=== PATIENT | male | born 1950 | race Caucasian/White ===

== ENCOUNTER 2020-06-19 12:39 | Emergency (ER) | payer MEDICARE ==
[~2020-06-19] VITALS: Ht 175.3 cm; Wt 84.0 kg
[2020-06-19] MEDS ORDERED: IV NORMAL SALINE 1000ML BAG 1,000 ML IV ONE ×2 (13:00→13:30)
--- NOTE | 2020-06-19 13:00 | PHYS DOC ---
Past Medical History Past Medical History: Hypertension Past Surgical History: Hip Replacement Smoking Status: Never Smoker Alcohol Use: Heavy Drug Use: None General Adult EDM: Chief Complaint: HEAT EXPOSURE HPI: HPI: 70-year-old male presents emergency department today after having a heat exposure injury. He was mowing the lawn when he was feeling lightheaded. He then went to go cool off in the garage when he passed out. He woke up he is unsure how long he was out for. He flagged down a dedicated intermodal truck driver who assisted with some water in a cool rag and called the paramedics form. Currently he is feeling better after coming in by paramedics and he denies any pain at this time. He reports drinking water while he was mowing his lawn. His only medical condition is high blood pressure. Review of systems negative for chest pain abdominal pain vomiting headache. Negative for headache or nuchal rigidity. All other review of systems negative. ED course: 70-year-old male presenting after having a syncopal episode during heat exhaustion exposure injury. EKG obtained reviewed by myself shows sinus rhythm with a regular rate. ST segments are congruent. Not suggestive of ACS. CBC unremarkable. Chemistry panel shows a creatinine of 1.5. Troponin within normal limits. CK within normal lungs. Bilirubin minimally elevated. The patient was given 2 L in the emergency department and felt remarkably better. We are waiting on a urine when he was unable to provide a urine he wanted to sign out AMA. We were willing to provide more IV fluids and wait for him to be able to provide urine however the patient is not underweight. He understands the risk of disability and pain and suffering. He is not having urinary tract infection symptoms. He then signed out AMA. Heart Score: Risk Factors: Risk Factors: DM, Current or recent (<one month) smoker, HTN, HLP, family history of CAD, obesity. Risk Scores: Score 0 - 3: 2.5% MACE over next 6 weeks - Discharge Home Score 4 - 6: 20.3% MACE over next 6 weeks - Admit for Clinical Observation Score 7 - 10: 72.7% MACE over next 6 weeks - Early Invasive Strategies Allergies: Allergies: Allergies Coded Allergies Type Severity Reaction Last Updated Verified No Known Drug Allergies 06/19/20 No Physical Exam: PE: Constitutional: Well developed, well nourished, no acute distress, non-toxic appearance. HENT: Normocephalic, atraumatic, bilateral external ears normal, oropharynx moist, no oral exudates, nose normal. [] Eyes: PERRLA, EOMI, conjunctiva normal, no discharge. Neck: Normal range of motion, no tenderness, supple, no stridor. [] Cardiovascular:Heart rate regular rhythm, no murmur Lungs & Thorax: Bilateral breath sounds clear to auscultation [] Abdomen: Bowel sounds normal, soft, no tenderness, no masses, no pulsatile masses. Skin: Warm, dry, no erythema, no rash. [] Back: No tenderness, no CVA tenderness. Extremities: No tenderness, no cyanosis, no clubbing, ROM intact, no edema. [] Neurologic: Mental status: Awake oriented and alert x3 Cranial nerves: Extraocular movements intact, eyebrows evangelina bilaterally, smile s ymmetric, uvula elevation nl, shoulder shrug intact bilaterally, tongue protrusion normal DTRs: 2+ Sensation: equal and normal in all extremities Strength: 5/5 in upper and lower extremities bilaterally Psychologic: Affect normal, judgement normal, mood normal. [] EKG: EKG: [] Radiology/Procedures: Radiology/Procedures: [] Course & Med Decision Making: Course & Med Decision Making Pertinent Labs and Imaging studies reviewed. (See chart for details) [] Dragon Disclaimer: Dragon Disclaimer: This electronic medical record was generated, in whole or in part, using a voice recognition dictation system. Departure Departure Impression: Primary Impression: Heat exhaustion Additional Impression: Syncope Disposition: 07 AGAINST MEDICAL ADVICE Condition: GUARDED Patient Instructions: Heat Illness-SportsMed Additional Instructions: Follow-up with your primary physician in 1 to 2 days. Return to the emergency department if you have any new or concerning findings. Justicifation of Admission Dx: Justifications for Admission: Justification of Admission Dx: N/A GALINA FENTON MD Jun 19, 2020 13:00
[2020-06-19 13:28] LABS: BASO % 0 % (0-3); EOS % 0 % (0-3); HEMATOCRIT 42.6 % (39.0-53.0); HEMOGLOBIN 14.7 g/dL (13.0-17.5); LYMPH # 0.7 x10^3/uL (1.0-4.8); LYMPH % 7 % (24-48); MEAN CORPUSCULAR HEMOGLOBIN 30 pg (25-35); MEAN CORPUSCULAR HGB CONC 34 g/dL (31-37); MEAN CORPUSCULAR VOLUME 88 fL (79-100); MONO # 0.5 x10^3/uL (0.0-1.1); MONO % 4 % (0-9); NEUT # 9.8 x10^3/uL (1.8-7.7); NEUT % 89 % (31-73); PLATELET COUNT 302 x10^3/uL (140-400); RED BLOOD COUNT 4.85 x10^6/uL (4.30-5.70)
[2020-06-19 13:39] LABS: CALCIUM 9.6 mg/dL (8.5-10.1); CREATININE 1.5 mg/dL (0.7-1.3); GFR 46.1; POTASSIUM 3.9 mmol/L (3.5-5.1)
--- NOTE | 2020-06-19 13:40 | RAD ---
EXAM: Chest, single view. HISTORY: Syncope. COMPARISON: None. FINDINGS: A frontal view of the chest is obtained. There is no infiltrate, pleural effusion or pneumothorax. The heart is normal in size. IMPRESSION: No acute pulmonary finding. Electronically signed by: Tamiko aRder MD (06/19/2020 1:37 PM) [id number]
[2020-06-19 13:47] LABS: ALBUMIN 4.2 g/dL (3.4-5.0); DIRECT BILIRUBIN 0.3 mg/dL (0.0-0.2); TOTAL BILIRUBIN 0.9 mg/dL (0.2-1.0); TOTAL PROTEIN 8.1 g/dL (6.4-8.2)
[2020-06-19 14:31] LABS: % BANDS 3 % (0-9); % LYMPHS 7 % (24-48); % MONOS 5 % (0-10); % SEGS 85 % (35-66); PLT ESTIMATE ADEQUATE (ADEQUATE)
[2020-06-19 16:00] VITALS: BP 133/76
--- NOTE | 2020-06-24 03:40 | EKG ---
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
== END 2020-06-19 16:35 | disposition left against medical advice (07) ==
LOC: ER 12:39
DX: T67.5XXA Heat exhaustion, unspecified, initial encounter (principal); R55 Syncope and collapse; I10 Essential (primary) hypertension; F10.20 Alcohol dependence, uncomplicated; Y90.9 Presence of alcohol in blood, level not specified; X30.XXXA Exposure to excessive natural heat, initial encounter; Y93.89 Activity, other specified; Y92.89 Other specified places as the place of occurrence of the external cause; Y99.8 Other external cause status
CPT/HCPCS: 36415; 71045; 80048; 80076; 82550; 83690; 83880; 84484; 85007; 85025; 96360; 99285; J7030; 93005